=== PATIENT | male | born 1980 | race Caucasian/White ===

== ENCOUNTER 2019-05-18 17:42 | Emergency (ER) | payer OTHER, SELFPAY ==
[2019-05-18 17:44] VITALS: BP 132/109; PULSE 109; RESP 18; TEMP 36.6; O2SAT 98; BMI 32.1
--- NOTE | 2019-05-18 18:28 | ED.DCSUM_ITS ---
History of Present Illness Chief Complaint: Laceration Informant: Patient Onset: Today Narrative: It is a 39-year-old male, [id number], presenting from work with injury to his left fourth and fifth fingers. Patient states he actually hit his hand against a very sharp ayana which then cut his left ring finger as well as his pinky finger. Patient continued to bleed so he came to the emergency room for further evaluation. He is not on any anticoagulation or blood thinners. He states his last tetanus shot was approximately 4 years ago when he was here for a lip laceration. Patient has mild pain at the site. He denies any other complaints at this time. Denies any associated numbness or tingling. Past Medical History - Allergies and Home Meds Allergies/Adverse Reactions: Allergies No Known Allergies Allergy (Verified 05/18/19 17:46) Primary Care Physician: NOT,DEFINED [NON-STAFF] - Smoking Status: Current every day smoker Review of Systems General: Denies: Chills, Fever, Sweats Eyes: Denies: Visual changes - bilaterally, Diplopia ENT: Denies: Rhinorrhea, Sore throat Cardiovascular: Denies: Chest pain, Palpitations Respiratory: Denies: Dyspnea, Cough, Dyspnea on exertion Gastrointestinal: Denies: Abdominal pain, Nausea, Vomiting, Diarrhea, Melena, Hematochezia Genitourinary: Denies: Dysuria, Hematuria, Frequency Musculoskeletal: Denies: Back pain, Extremity Pain Skin: Reports: Wounds - Left ring and pinky finger. Denies: Rash Neurological: Denies: Headache, Weakness, Numbness Physical Exam Vital Signs/Narrative: Vital Signs Temp Pulse Resp BP Pulse Ox 05/18/19 17:44 97.8 F 109 H 18 132/109 H 98 Inital Vital Signs reviewed: Yes General: Well nourished, Well developed, No Acute Distress Head: Normocephalic, Atraumatic Eyes: Perrl, EOMI ENT: Moist mucous membranes, No rhinorrhea Neck: Supple, Nontender Cardiovascular: Regular rate, Regular rhythm, No murmurs Respiratory: No distress, CTA bilaterally, Chest nontender Abdomen: Soft, Nontender, Nondistended, Normal bowel sounds Back: Nontender, Normal Inspection Extremities: Nontender, No edema, Tenderness - Left fourth and fifth distal fingers, - - Abrasion laceration to the left fourth and fifth fingers but no bony deformity, range of motion is normal with passive and active motion Skin: Normal color, No rash, Trauma - Superficial abrasion over the left DIP of the pinky, dorsal aspect; 1.5 cm linear laceration, partial-thickness over dorsal aspect of left fourth middle phalanges, intermittent bleeding present on exam, wound edges are well approximated Neurological: Alert, Oriented x3, Cranial nerves II-XII grossly intact, Normal Strength, Normal Sensation Psychological: Normal affect, Normal Mood Diagnostic/Tx/Re-eval - Medical Decision Making Patient is laceration to his left fourth and fifth fingers. There does not appear to be any muscular tenderness damage, the lacerations are partial- thickness. The wound edges well approximated and laceration repair with Dermabond or suturing is not indicated. Patient's hand is then reevaluated. Bulky dressing is applied with bacitracin and malka tape was applied to the fourth and fifth fingers. Patient is given work restrictions for the next 3 days with his heels stating that he continue to wear this dressing. Patient states he has NSAIDs at home to take. Tetanus is up-to-date. Patient is neurovascularly intact. He is given occupational medicine for follow-up. Patient is counseled on signs and symptoms requiring return to the emergency room. Patient verbalizes agreement and understand this plan. Patient discharged home in stable and improved condition. Diagnosis 1 laceration of fourth and fifth left fingers ED Disposition - Plan for ED Patient: Disposition: Home or Assisted Living Instructions: LACERATION, Hand Referrals: NOT,DEFINED [NON-STAFF] -
[2019-05-18 19:37] VITALS: BP 132/76; PULSE 83; RESP 17; O2SAT 99
== END 2019-05-18 19:45 | disposition home or self-care (01) ==
PROVIDERS: Emergency Provider Emergency Medicine; Family Provider Family Medicine; PCP Family Medicine
DX: S61.215A Laceration without foreign body of left ring finger without damage to nail, initial encounter (principal); S61.217A Laceration without foreign body of left little finger without damage to nail, initial encounter; F17.200 Nicotine dependence, unspecified, uncomplicated; W26.8XXA Contact with other sharp object(s), not elsewhere classified, initial encounter; Y93.89 Activity, other specified; Y92.89 Other specified places as the place of occurrence of the external cause; Y99.0 Civilian activity done for income or pay
CPT/HCPCS: 99282

== ENCOUNTER → 2019-08-31 15:24 | Outpatient (CLI) | payer OTHER, SELFPAY ==
[2019-08-31 15:19] VITALS: BMI 32.1
--- NOTE | 2019-08-31 15:24 | RAD_ITS ---
STUDY: X-RAY - LEFT FOOT CLINICAL: Male, 39 years old. Pain. No known injury. TECHNIQUE: 3 view(s) of the foot. COMPARISON: None. FINDINGS: Normal talus, calcaneus, and tarsal bones. Normal visualized subtalar, talonavicular, calcaneocuboid, tarsal and tarsometatarsal articulations. Normal metatarsi. Normal metatarsophalangeal joint of the great toe. Normal tibial and fibular sesamoid bones. Normal interphalangeal joint of the great toe. Normal phalanges of the great toe. Normal second through fifth metatarsophalangeal joints. Normal interphalangeal joints and phalanges of the lesser toes. The soft tissue structures are unremarkable. RAD/Foot min 3 Views IMPRESSION: Normal x-ray examination of the foot. Electronically Signed: Nirav Palacios, at 15:44 EST , Service support ,
== END ==
PROVIDERS: Family Provider Family Medicine; PCP Family Medicine; Referring Provider Physician Assistant Surgical; Visit Provider Physician Assistant Surgical
DX: M79.672 Pain in left foot (principal)
CPT/HCPCS: 73630

== ENCOUNTER → 2022-09-19 | Outpatient (CLI) | payer OTHER, SELFPAY ==
--- NOTE | 2022-09-19 12:38 | MRI_ITS ---
MRI of the thoracic spine INDICATION: Spondylosis and radiculopathy TECHNIQUE: MRI of the thoracic spine was performed in the sagittal and axial projections utilizing T1, T2 and STIR imaging sequences. FINDINGS: Bony structures demonstrate homogeneous signal intensity. There is no acute fracture or subluxation there are Schmorl''s node deformities involving the superior endplates of T4 and T7. The disc space heights are well maintained however there is mild multilevel degenerative endplate change. There is no focal disc protrusion spinal stenosis or cord compression. Spinal cord is normal in size and signal intensity MRI/Spine Thoracic (Routine) IMPRESSION: Mild spondylosis. No acute fracture or other significant bony pathology No disc protrusion spinal stenosis or cord compression Electronically Signed: Wilmer Hamilton MD at 16:28 EST ,
--- NOTE | 2022-09-19 12:38 | MRI_ITS ---
MRI of the lumbar spine INDICATION: Low back pain with numbness on the right side TECHNIQUE: MRI of the lumbar spine was performed in sagittal and axial projections utilizing T1, T2 and STIR imaging sequences. FINDINGS: No evidence for acute fracture or subluxation. There are interosseous hemangiomata T12 and L2 vertebral bodies. Conus medullaris is unremarkable terminating at T12-L1. L1-2: Disc space height is mildly narrowed desiccation of the disc and minor annular bulge with tiny right paracentral disc protrusion. Normal facet joints. Normal central canal or bilateral lateral recesses and neuroforamina. L2-3: Normal disc space height hydration and minimal annular bulge. Mild facet arthropathy. Normal central canal bilateral lateral recesses and neuroforamina. L3-4: Normal disc space height hydration and morphology. Mild facet arthropathy. Normal central canal bilateral lateral recesses and neuroforamina. L4-5: Normal disc space height with desiccation of the disc and mild annular bulge. There are tiny bilateral foraminal annular tears and disc protrusions. Facet arthropathy and thickening of ligamenta flava. Normal central canal and bilateral lateral recesses. Moderate bilateral neural foraminal encroachment exaggerated by shortened pedicles L5-S1: Normal disc height hydration and minimal annular bulge. Facet arthropathy and mild thickening of ligamenta flava. Normal central canal, bilateral lateral recesses and neuroforamina. MRI/Spine Lumbar (Routine) IMPRESSION: . No acute fracture or other significant bony pathology. Spinal stenosis at L4-5 secondary to bulging annulus and facet arthropathy. Other findings as above Electronically Signed: Wilmer Hamilton MD at 16:38 EST ,
== END | disposition home or self-care (01) ==
PROVIDERS: PCP Family Medicine; Visit Provider Orthopaedic Surgery
DX: M47.24 Other spondylosis with radiculopathy, thoracic region (principal); M47.26 Other spondylosis with radiculopathy, lumbar region; M51.36 Other intervertebral disc degeneration, lumbar region
CPT/HCPCS: 72146; 72148